=== PATIENT | male | born 1955 | race Caucasian/White ===

== ENCOUNTER 2017-10-29 04:54 | Inpatient (IN) ==
[2017-10-26 16:20] LABS: Appearance,Urine HAZY; Bacteria,Urine FEW /hpf (0); Bilirubin,Urine NEG (NEG); Color,Urine YELLOW; Glucose,Urine (UA) NEGATIVE (NEG); Leukocyte Esterase,Urine 500 /uL (NEG); Mucus,Urine MANY /hpf (0); Protein,Urine 30 mg/dL (NEG); Specific Gravity,Urine 1.026 (1.000-1.035); Urine Blood 0.03 mg/dL (<0.03); Urine Hyaline Cast 2 /lpf (0-2); Urine RBC 14 /hpf (0-1); Urine Squamous Epithelial Cell 0 /hpf (0-4); Urine WBC > 182 /hpf (0-4); Urobilinogen,Urine NEG (NEG)
[2017-10-26 17:47] LABS: Blood Urea Nitrogen 13 mg/dl (8-23)
[2017-10-26 17:51] LABS: Basophils # (Auto) 0 K/mcL (0.0-0.3); Basophils % (Auto) 0.2 % (0.0-2.0); Eosinophils # (Auto) 0.2 K/mcL (0.0-0.7); Eosinophils % (Auto) 0.9 % (0.0-7.0); Granulocytes % (Auto) 66.2 % (38.0-78.0); Lymphocytes # (Auto) 4.5 K/mcL (1.5-4.8); Lymphocytes % (Auto) 26.1 % (15.5-49.0); Mean Cell Volume 109.7 fL (80.0-100.0); Mean Corpuscular HGB Conc 33.6 g/dL (31.0-36.0); Mean Corpuscular Hemoglobin 36.9 pg (26.0-34.0); Monocytes # (Auto) 1.1 K/mcL (0.1-0.9); Monocytes % (Auto) 6.6 % (1.0-12.0); Platelet Count 208 K/mcL (140-440); RBC 4.21 M/mcL (4.50-5.90); Red Cell Distribution Width 14.1 % (11.5-14.5)
[~2017-10-29 04:54] MED LIST: IPRATROPIUM/ALBUTEROL 3 ML AMPUL.NEB NEB PRN; SCOPOLAMINE 1 PATCH PATCH TOPICAL PRN
[2017-10-29] MEDS ORDERED: GABAPENTIN 300 MG CAPSULE PO SCH (06:00)
[2017-10-29 06:14] LABS: Appearance,Urine CLEAR; Bilirubin,Urine NEG (NEG); Color,Urine YELLOW; Glucose,Urine (UA) NEGATIVE (NEG); Leukocyte Esterase,Urine NEG /uL (NEG); Protein,Urine NEG (NEG); Urine Blood NEG mg/dL (<0.03); Urobilinogen,Urine NEG (NEG)
[2017-10-29] MEDS ORDERED: CELECOXIB 200 MG CAPSULE PO SCH (07:00)
[2017-10-29] MEDS ORDERED: ceFAZolin 1 GM VIAL IV SCH (07:00)
[2017-10-29] MEDS ORDERED: ACETAMINOPHEN 500 MG TABLET PO SCH (07:00)
[2017-10-29] MEDS ORDERED: oxyCODONE 10 MG TAB.ER.12H PO SCH (07:00)
[2017-10-29] MEDS ORDERED: KETOROLAC 30 MG, ROPIVACAINE HCL/PF 49.5 ML, EPINEPHrine 0.5 MG, 0.9 % SODIUM CHLORIDE ... IJ ONE (07:08)
[2017-10-29] MEDS ORDERED: TEMAZEPAM 15 MG CAPSULE PO PRN (07:22)
[2017-10-29] MEDS ORDERED: ACETAMINOPHEN 325 MG TABLET PO PRN (07:22)
[2017-10-29] MEDS ORDERED: POLYETHYLENE GLYCOL 3350 17 GM PACKET PO PRN (07:22)
[2017-10-29] MEDS ORDERED: ONDANSETRON 4 MG/2 ML VIAL IV PRN ×2 (07:22→08:32)
[2017-10-29] MEDS ORDERED: FLEETS ADULT ENEMA PR PRN (07:22)
[2017-10-29] MEDS ORDERED: TRANEXAMIC ACID 1,000 MG/10 ML VIAL IV ONE ×2 (07:22→07:35)
[2017-10-29] MEDS ORDERED: BENZOCAINE/MENTHOL 1 LOZENGE PO PRN ×2 (07:22→08:32)
[2017-10-29] MEDS ORDERED: MAGNESIUM HYDROXIDE 30 ML ORAL.SUSP PO PRN (07:22)
[2017-10-29] MEDS ORDERED: HYDROmorphone 2 MG/ML VIAL IV PRN ×2 (07:22→08:32)
[2017-10-29] MEDS ORDERED: BISACODYL 10 MG SUPP.RECT PR PRN (07:22)
[2017-10-29] MEDS ORDERED: ALBUTEROL SULFATE 2.5 MG/3 ML NEBULIZER NEB PRN (07:25)
[2017-10-29] MEDS ORDERED: ALBUTEROL SULFATE 1 PUFF INHALER INH PRN (07:25)
[2017-10-29] MEDS ORDERED: HYDROcodone/APAP 10/325MG TABLET PO PRN (07:25)
[2017-10-29] MEDS ORDERED: LIDOCAINE HCL/PF 100 MG/5 ML SYRINGE IV ONE (07:35)
[2017-10-29] MEDS ORDERED: ONDANSETRON 4 MG/2 ML VIAL IV ONE (07:35)
[2017-10-29] MEDS ORDERED: MIDAZOLAM 5 MG/5 ML VIAL IV ONE (07:35)
[2017-10-29] MEDS ORDERED: DEXAMETHASONE 10 MG/ML VIAL IV ONE (07:35)
[2017-10-29] MEDS ORDERED: PROPOFOL 200 MG/20 ML VIAL IV ONE (07:35)
[2017-10-29] MEDS ORDERED: GENTAMICIN SULFATE 800 MG/20 ML VIAL IR ONE (07:59)
[2017-10-29] MEDS ORDERED: MEPERIDINE 25 MG/ML SYRINGE IV PRN (08:32)
[2017-10-29] MEDS ORDERED: PROMETHAZINE 25 MG/ML VIAL IV PRN (08:32)
[2017-10-29] MEDS ORDERED: IPRATROPIUM/ALBUTEROL 3 ML AMPUL.NEB NEB PRN (08:32)
[2017-10-29] MEDS ORDERED: diphenhydrAMINE 50 MG/ML VIAL IV PRN (08:32)
[2017-10-29] MEDS ORDERED: METHOCARBAMOL 1,000 MG/10 ML VIAL IV PRN (08:32)
[2017-10-29] MEDS ORDERED: LACTATED RINGERS 250 ML IV PRN (08:32)
[2017-10-29] MEDS ORDERED: NALOXONE HCL 0.4 MG/ML VIAL IV PRN (08:32)
[2017-10-29] MEDS ORDERED: fentaNYL 100 MCG/2 ML VIAL IV PRN (08:32)
[2017-10-29] MEDS ORDERED: FLUMAZENIL 0.1 MG/ML ML IV PRN (08:32)
[2017-10-29] MEDS ORDERED: LACTATED RINGERS 1,000 ML IV SCH (08:45)
[2017-10-29] MEDS ORDERED: clonazePAM 1 MG TABLET PO PRN (09:00)
--- NOTE | 2017-10-29 09:14 | Brief Operative Note ---
Date of procedure: 10/29/17 Pre-op diagnosis: left totalhip femoral stem loosening Post-op diagnosis: same Procedure: left femoral stem revision Grafts/Implants: Yes Anesthesia: GETA Complications: none Complications Description: 10/29/17 09:13 none Surgeon: Gwyn Darden Machine Ironer: Mark Leyva Estimated blood loss (cc): 50 Tourniquet Time (Minutes): 0 Specimens Removed/Pathology: none sent Condition: stable Disposition: PACU
--- NOTE | 2017-10-29 09:45 | Operative Note ---
DATE OF OPERATION: 10/29/2017 PREOPERATIVE DIAGNOSIS: Left hip femoral stem pain. POSTOPERATIVE DIAGNOSIS: Left hip femoral stem pain. PROCEDURE: Left femoral stem removal and placement of a long stem Church Modular stem. SURGEON: Gwyn Darden M.D. COMPUTER SYSTEMS SECURITY ADMINISTRATOR: Mark Leyva PA-C. ANESTHESIA: General LMA anesthesia. COMPLICATIONS: None. PATHOLOGY: We did send for soft tissue at the tip of the stem which was removed. This did show 50 white cells. There was no purulence seen. This tissue was removed. We irrigated thoroughly. DESCRIPTION OF PROCEDURE: The patient was brought to the operating room and put to sleep with general LMA anesthesia. Once asleep, the patient had the left hip sterilely prepped and draped in the usual sterile fashion. Timeout performed. Preop antibiotics given, and tranexamic acid was given. We made a superior posterior approach through the prior scar. We dissected down through the fascial layer, identified the hip. No purulence. We then released the capsule posteriorly and dislocated the hip. We then removed the femoral head and used an osteotome to remove the stem. It was not frankly loose, but we were able to remove the stem with multiple attempts with osteotomes to loosen the stem and remove any ingrowth. No purulence was seen. We impacted the stem and then slapped the stem with traction. This seemed to remove the stem with very minimal bone loss. We irrigated thoroughly and then found some tissue at the very tip that was removed. This did show 50 white cells. With this, we thoroughly irrigated this though there was no purulence in this area. We did proceed with implantation. We took a Church Modular. This was reamed up to the size 15. The Church Modular stem was impacted. We then trialed the +10 proximal body with a neutral neck length. This showed no offset, and the leg was lengthened by about 6 to 7 mm. For this reason, we then placed a neutral body and placed a 12 mm proximal body. This was still longer by 5 mm. We then impacted the stem slightly and used a neutral proximal body and used a 12 neck. This was very stable. We repaired the capsule posteriorly with #2 Ethibond, closed the fascial layer with #1 Stratafix. We injected the soft tissue with the post-inject formula. The patient tolerated this well. There was no complication. RBH:rut Heck: 10/29/2017 09:26:47 Job ID: [id number] Doc ID: [id number] Gwyn Darden MD
--- NOTE | 2017-10-29 10:05 | XRay Report ---
CLINICAL INFORMATION: Postsurgical follow-up TECHNIQUE: AP pelvis. AP and lateral left hip COMPARISON: Previous examination dated October 29, 2017 FINDINGS: Interval revision of left total hip arthroplasty. A longer femoral stem was placed. Alignment is anatomic. Pelvis is negative. No fracture. No lytic lesion. Sacrum is negative. IMPRESSION: 1. Interval revision of left total hip arthroplasty 2. Anatomic alignment Interpreted and Authenticated by: Dayron Hernandez 10/29/17
[2017-10-29] MEDS: HYDROcodone/APAP 10/325MG TABLET PO PRN ×3 (11:44→23:47)
[2017-10-29] MEDS: 0.45 % SODIUM CHLORIDE 1,000 ML IV SCH ×2 (13:58→21:17)
[2017-10-29] MEDS: GABAPENTIN 300 MG CAPSULE PO SCH ×2 (15:59→21:17)
[2017-10-29] MEDS: KETOROLAC 15 MG/ML VIAL IV PRN (15:59)
[2017-10-29] MEDS: 0.9 % SODIUM CHLORIDE 10 ML SYRINGE IV SCH ×2 (16:02→22:07)
[2017-10-29] MEDS ORDERED: MAG HYDROX/AL HYDROX/SIMETH 30 ML ORAL.SUSP PO PRN (16:05)
[2017-10-29] MEDS ORDERED: OMEPRAZOLE 20 MG CAPSULE PO STA (16:08)
[2017-10-29] MEDS: ceFAZolin 1 GM VIAL IV SCH ×2 (16:48→23:38)
[2017-10-29] MEDS ORDERED: SENNOSIDES 1 TABLET PO SCH (21:00)
[2017-10-29] MEDS ORDERED: TERAZOSIN 5 MG CAPSULE PO SCH (21:00)
[2017-10-29] MEDS: DOCUSATE SODIUM 100 MG CAPSULE PO SCH (21:16)
[2017-10-29] MEDS: SULFAMETHOXAZOLE/TRIMETHOPRIM 1 TABLET PO SCH (21:16)
[2017-10-29] MEDS: ASPIRIN 325 MG ENTERIC COATED TABLET PO SCH (21:17)
[2017-10-30] MEDS: 0.45 % SODIUM CHLORIDE 1,000 ML IV SCH ×3 (00:45→14:24)
[2017-10-30] MEDS: 0.9 % SODIUM CHLORIDE 10 ML SYRINGE IV SCH ×2 (06:10→15:00)
[2017-10-30] MEDS: HYDROcodone/APAP 10/325MG TABLET PO PRN ×2 (06:10→11:26)
[2017-10-30] MEDS ORDERED: OMEPRAZOLE 20 MG CAPSULE PO SCH (07:30)
--- NOTE | 2017-10-30 07:40 | Orthopedic Progress Note ---
Subjective Patient information: Note initiated : 10/30/17 at 7:39 am Service Date, if different from initiated Date: [] Patient: Pb Riley 62 y/o M admitted on 10/29/17 for Left Total Hip Arthroplasty Revision. Chief Complaint: [Pt is stable this morning on post operative day 1 without any significant concerns or complaints. Patients vital signs have remained stable. Patients dressing is dry and is grossly instact from a neurovascular and motor standpoint. Patients 10 point ROS is otherwise negative. ] Objective Vital signs: Vital Signs Temp Pulse Pulse Resp BP Pulse Ox 10/30/17 07:00 97.7 F 62 12 104/66 96 10/30/17 04:48 97.5 F 68 12 117/72 95 10/30/17 04:47 95 10/30/17 02:35 95 10/30/17 01:00 95 10/30/17 00:00 97.6 F 73 12 101/66 95 10/29/17 23:00 95 10/29/17 21:12 95 10/29/17 21:11 95 10/29/17 20:00 97.3 F 79 12 103/65 95 10/29/17 19:00 95 10/29/17 17:00 96 10/29/17 16:00 98.6 F 85 16 107/64 96 10/29/17 15:00 96 10/29/17 13:22 99 10/29/17 13:04 130/72 94 10/29/17 12:04 114/79 99 10/29/17 11:22 85 10/29/17 11:04 121/77 97 10/29/17 10:49 122/79 98 10/29/17 10:35 122/79 98 10/29/17 10:20 118/70 97 10/29/17 10:05 123/69 94 10/29/17 09:55 96.9 F L 85 12 131/73 99 10/29/17 09:45 85 12 121/68 99 10/29/17 09:40 88 12 104/54 98 10/29/17 09:35 93 H 14 95/57 99 10/29/17 09:30 92 H 13 126/101 99 10/29/17 09:25 87 12 120/68 99 10/29/17 09:23 97.2 F 88 88 12 125/69 99 Intake and Output 10/29/17 10/30/17 10/30/17 21:59 05:59 13:59 Intake Total 800 / 800 1400 / 1400 553 / 553 Output Total 725 / 725 475 / 475 650 / 650 Balance 75 / 75 925 / 925 -97 / -97 Intake: IV 1000 / 1000 553 / 553 Sodium Chloride 0.45% 1,000 ml 1000 / 1000 553 / 553 @ 100 mls/hr IV .Q10H [facility] Rx#: [id number] Oral 800 / 800 400 / 400 Output: Void Amount 725 / 725 475 / 475 650 / 650 Other: Meal Dinner Percent of Meal Consumed 100% Stool Size Small Small Stool Color Brown Brown Stool Consistency Formed Loose # Voids 1 1 2 # Bowel Movements 1 1 Weight 180 lb 8 oz Intake & Output: Intake & Output 10/29/17 10/30/17 10/30/17 21:59 05:59 13:59 Intake Total 800 / 800 1400 / 1400 553 / 553 Output Total 725 / 725 475 / 475 650 / 650 Balance 75 / 75 925 / 925 -97 / -97 Weight 180 lb 8 oz Intake: IV 1000 / 1000 553 / 553 Sodium Chloride 0.45% 1,000 ml 1000 / 1000 553 / 553 @ 100 mls/hr IV .Q10H [facility] Rx#: [id number] Oral 800 / 800 400 / 400 Output: Void Amount 725 / 725 475 / 475 650 / 650 Other: Meal Dinner Percent of Meal Consumed 100% Stool Size Small Small Stool Color Brown Brown Stool Consistency Formed Loose # Voids 1 1 2 # Bowel Movements 1 1 Incision: Yes healing Incision clean and dry: Yes Dressing: Yes clean Weight bearing status: full Neurological exam IM: Yes motor sensory intact, Yes neurovascular intact Extremities exam IM: Yes Foot pink and warm, Yes neurovascular intact - Labs CBC & BMP: 10/30/17 04:05 10/26/17 14:51 Labs: Orthopedic Labs 10/26/17 14:51 PT 22.3 H INR 1.9 H APTT 34 10/30/17 10/26/17 04:05 14:51 Hgb 15.6 Hct 40.1 L 46.2 Assessment and Plan (1) History of revision of total replacement of left hip joint The patient has been educated regarding dressing care, Physical Therapy recommendations, home exercises, restrictions, and follow up appointments. The patient has had all necessary DME prescribed. The patient has remained relatively stable during their hospital course. Status: Acute
--- NOTE | 2017-10-30 07:42 | Discharge Summary ---
Ortho Discharge - PAM - Patient Instructions Diet: Regular Diet Activity: activity as tolerated, weight bearing as tolerated Total Hip Protocol: Follow activity instructions as provided by Physical Therapy. Dressing Care: May shower in 2 days - Problem Maintenance (1) History of revision of total replacement of left hip joint Status: Acute - Follow Up Plan Follow Up Appointments: Mark Leyva PA-C [Physician Media Planner / Buyer] - 11/13/17 1:40 pm Disposition: Home, Self-Care Prognosis: Good Rehab Potential: Good I certify that the patient requires SNF services: No Overall status at discharge: patient is progressing back to baseline - Orders For Discharge Prescriptions: Aspirin [Ecotrin] 325 mg PO BID #60 tab.ec Docusate Sodium [Colace] 100 mg PO BID #60 cap HYDROcodone/APAP 10/325MG [[place] 10-325Mg] 1 - 2 tab PO Q4HP PRN #75 tab PRN Reason: Pain Level 3-6
[2017-10-30] MEDS ORDERED: FINASTERIDE 5 MG TABLET PO SCH (09:00)
[2017-10-30] MEDS ORDERED: ESCITALOPRAM 20 MG TABLET PO SCH (09:00)
--- NOTE | 2017-10-30 10:01 | XRay Report ---
CLINICAL INFORMATION: Revision of left total hip arthroplasty TECHNIQUE: AP images of the pelvis. COMPARISON: Preoperative evaluation dated 06/28/2016 FINDINGS: Status post revision of left total hip arthroplasty. Anatomic alignment demonstrated. IMPRESSION: Status post revision of left total hip arthroplasty Interpreted and Authenticated by: Dayron Hernandez 10/30/17
[2017-10-30] MEDS: GABAPENTIN 300 MG CAPSULE PO SCH (10:24)
[2017-10-30] MEDS: DOCUSATE SODIUM 100 MG CAPSULE PO SCH (10:25)
[2017-10-30] MEDS: SULFAMETHOXAZOLE/TRIMETHOPRIM 1 TABLET PO SCH (10:25)
[2017-10-30] MEDS: ASPIRIN 325 MG ENTERIC COATED TABLET PO SCH (10:26)
[2017-10-30] MEDS: KETOROLAC 15 MG/ML VIAL IV PRN (10:26)
--- NOTE | 2017-10-30 16:25 | Surgical Pathology Report ---
HISTOLOGY SPECIMEN MICROSCOPIC DIAGNOSIS SOFT TISSUE, LEFT HIP, BIOPSY: -- FIBROUS SOFT TISSUE WITH PATCHY FOCI OF INCREASED NEUTROPHILS (GREATER THAN 50/hpf); SEE COMMENT. -- DETACHED FRAGMENTS OF MARROW ELEMENTS WITH ONGOING TRILINEAGE HEMATOPOIESIS. (DMT:shon) COMMENT: Scattered foci of neutrophils are seen embedded within the fibrous soft tissue and are in close association with numerous lymphocytes and plasma cells. Immediately adjacent to a few of these areas are hematopoietic elements with maturing myeloid elements and scattered mature neutrophils. The arrangement of these cells to one another suggest that the neutrophils seen may be resident marrow neutrophils unassociated with an infectious or inflammatory process. Clinical correlation is necessary. INTRAOPERATIVE CONSULTATION FROZEN SECTION DIAGNOSIS ([facility], [place], [place]) FSA, SOFT TISSUE, LEFT HIP, BIOPSY: -- FOCI OF GREATER THAN 50 NEUTROPHILS/hpf. (DMT:sln) GROSS DESCRIPTION Received fresh for intraoperative consultation labeled left hip, is a 2.1 x 1.5 x 0.4 cm hanna-pink membranous soft tissue fragment. The fragment is sectioned and entirely submitted for frozen section consultation and resubmitted as FSA. (DMT:sln) Electronically Signed by: Matias Byers M.D.
== END 2017-10-30 15:10 | disposition home or self-care (01) | DRG 468 ==
LOC: MEDSUR 04:54
PROVIDERS: ADMIT Orthopaedic Surgery; ATTEND Orthopaedic Surgery

== ENCOUNTER 2019-12-22 09:29 | Inpatient (IN) ==
[2019-12-15 17:34] LABS: Basophils # (Auto) 0.13 K/mcL (0.00-0.30); Basophils % (Auto) 1.2 % (0.0-2.0); Eosinophils # (Auto) 0.86 K/mcL (0.00-0.70); Eosinophils % (Auto) 7.8 % (0.0-7.0); Granulocytes % (Auto) 47.6 % (38.0-78.0); Hematocrit 39.5 % (40.1-51.0); Hemoglobin 13.6 g/dL (13.7-17.5); Lymphocytes # (Auto) 3.76 K/mcL (1.50-4.80); Mean Cell Volume 107.3 fL (80.0-100.0); Mean Corpuscular HGB Conc 34.4 g/dL (31.0-36.0); Mean Platelet Volume 9.9 fL (7.4-10.4); Monocytes # (Auto) 1.04 K/mcL (0.10-0.90); Monocytes % (Auto) 9.4 % (1.0-12.0); Platelet Count 251 K/mcL (140-440); RBC 3.68 M/mcL (4.63-6.08); WBC 11.1 K/mcL (4.50-11.00)
[2019-12-15 17:51] LABS: Blood Urea Nitrogen 4 mg/dl (8-23); Calcium 8.9 mg/dl (8.6-10.4); Carbon Dioxide 27 mmol/L (22-30); Chloride 104 mmol/L (96-108); Glomerular Filtration Rate 95; Glucose 95 mg/dL (70-105)
[2019-12-15 18:07] LABS: Prothrombin Time 13.2 sec (11.9-14.5)
[2019-12-16 13:15] LABS: Appearance,Urine CLEAR; Bacteria,Urine 0 /hpf (0); Bilirubin,Urine NEG (NEG); Color,Urine YELLOW; Culture Indicated,Urine YES; Glucose,Urine (UA) NEGATIVE (NEG); Ketones,Urine NEG (NEG); Leukocyte Esterase,Urine 250 /uL (NEG); Mucus,Urine FEW /hpf (0); Nitrate,Urine NEG (NEG); Protein,Urine NEG (NEG); Specific Gravity,Urine 1.014 (1.000-1.035); Urine Blood NEG mg/dL (<0.03); Urine Hyaline Cast 2 /lpf (0-2); Urine RBC 4 /hpf (0-1); Urine Squamous Epithelial Cell 0 /hpf (0-4); Urine WBC 23 /hpf (0-4); Urobilinogen,Urine NEG (NEG)
[~2019-12-22 09:29] MED LIST changes: +ACETAMINOPHEN 500 MG TABLET PO SCH; +CELECOXIB 200 MG CAPSULE PO SCH; +GABAPENTIN 400 MG CAPSULE PO SCH; +ceFAZolin 2 GM in DEXTROSE 5% IN WATER 50 ML IV SCH; +oxyCODONE 10 MG TAB.ER.12H PO SCH
[2019-12-22 12:05] LABS: Appearance,Urine CLEAR; Bacteria,Urine 0 /hpf (0); Bilirubin,Urine NEG (NEG); Color,Urine YELLOW; Culture Indicated,Urine NO; Glucose,Urine (UA) NEGATIVE (NEG); Ketones,Urine NEG (NEG); Leukocyte Esterase,Urine 25 /uL (NEG); Mucus,Urine FEW /hpf (0); Nitrate,Urine NEG (NEG); Protein,Urine NEG (NEG); Specific Gravity,Urine 1.008 (1.000-1.035); Urine Blood NEG mg/dL (<0.03); Urine RBC 1 /hpf (0-1); Urine Squamous Epithelial Cell 0 /hpf (0-4); Urine WBC 1 /hpf (0-4); Urobilinogen,Urine NEG (NEG)
[2019-12-22] MEDS ORDERED: ROPIVACAINE HCL/PF 30 ML VIAL IJ ONE (13:05)
[2019-12-22] MEDS ORDERED: HYDROmorphone 1 MG/ML SYRINGE IV ONE (13:05)
[2019-12-22] MEDS ORDERED: PROPOFOL 200 MG/20 ML VIAL IV ONE (13:05)
[2019-12-22] MEDS ORDERED: fentaNYL 250 MCG/5 ML VIAL IV ONE (13:05)
[2019-12-22] MEDS ORDERED: DEXAMETHASONE 10 MG/ML VIAL IV ONE (13:05)
[2019-12-22] MEDS ORDERED: KETAMINE 100 MG/ML ML IV ONE (13:05)
[2019-12-22] MEDS ORDERED: MIDAZOLAM 2 MG/2 ML VIAL IV ONE (13:05)
[2019-12-22] MEDS ORDERED: GLYCOPYRROLATE 0.2 MG/ML VIAL IV ONE (13:05)
[2019-12-22] MEDS ORDERED: LIDOCAINE HCL/PF 100 MG/5 ML SYRINGE IV ONE (13:05)
[2019-12-22] MEDS ORDERED: TRANEXAMIC ACID 1,000 MG/10 ML VIAL IV ONE (13:05)
[2019-12-22] MEDS ORDERED: IPRATROPIUM/ALBUTEROL 3 ML AMPUL.NEB NEB PRN (14:06)
[2019-12-22] MEDS ORDERED: ONDANSETRON 4 MG/2 ML VIAL IV PRN ×2 (14:06→14:36)
[2019-12-22] MEDS ORDERED: NALOXONE HCL 0.4 MG/ML VIAL IV PRN (14:06)
[2019-12-22] MEDS ORDERED: METHOCARBAMOL 1,000 MG/10 ML VIAL IV PRN (14:06)
[2019-12-22] MEDS ORDERED: ePHEDrine 50 MG/ML AMPUL IV PRN (14:06)
[2019-12-22] MEDS ORDERED: diphenhydrAMINE 50 MG/ML VIAL IV PRN (14:06)
[2019-12-22] MEDS ORDERED: MEPERIDINE 25 MG/ML SYRINGE IV PRN (14:06)
[2019-12-22] MEDS ORDERED: PROMETHAZINE 25 MG/ML VIAL IV PRN (14:06)
[2019-12-22] MEDS ORDERED: fentaNYL 100 MCG/2 ML VIAL IV PRN (14:06)
[2019-12-22] MEDS ORDERED: FLUMAZENIL 0.1 MG/ML ML IV PRN (14:06)
[2019-12-22] MEDS ORDERED: ATROPINE SULFATE 0.4 MG/ML VIAL IV PRN (14:06)
[2019-12-22] MEDS ORDERED: METOPROLOL TARTRATE 5 MG/5 ML VIAL IV PRN (14:06)
[2019-12-22] MEDS ORDERED: LACTATED RINGERS 1,000 ML IV SCH (14:15)
[2019-12-22] MEDS ORDERED: GENTAMICIN SULFATE 800 MG/20 ML VIAL IR ONE (14:32)
[2019-12-22] MEDS ORDERED: oxyCODONE/APAP 5/325MG TABLET PO PRN (14:34)
[2019-12-22] MEDS ORDERED: FLEETS ADULT ENEMA PR PRN (14:36)
[2019-12-22] MEDS ORDERED: TEMAZEPAM 15 MG CAPSULE PO PRN (14:36)
[2019-12-22] MEDS ORDERED: BISACODYL 10 MG SUPP.RECT PR PRN (14:36)
[2019-12-22] MEDS ORDERED: HYDROcodone/APAP 10/325MG TABLET PO PRN (14:36)
[2019-12-22] MEDS ORDERED: MAGNESIUM HYDROXIDE 30 ML ORAL.SUSP PO PRN (14:36)
[2019-12-22] MEDS ORDERED: TRANEXAMIC ACID 1,000 MG/10 ML VIAL IV SCH (14:36)
[2019-12-22] MEDS ORDERED: ACETAMINOPHEN 325 MG TABLET PO PRN (14:36)
[2019-12-22] MEDS ORDERED: BENZOCAINE/MENTHOL 1 LOZENGE PO PRN (14:36)
[2019-12-22] MEDS ORDERED: POLYETHYLENE GLYCOL 3350 17 GM PACKET PO PRN (14:36)
--- NOTE | 2019-12-22 14:42 | Brief Operative Note ---
Brief Operative Note Date of procedure: 12/22/19 Pre-op diagnosis: right shoulder djd with rca and torn bicep tendon Post-op diagnosis: same Procedure: right tsa with bicep tenodesis Grafts/Implants: Yes Anesthesia: GETA Complications: none Surgeon: Gwyn Darden Croze Machine Operator: Mark Leyva Estimated blood loss (cc): 50.00 Specimens Removed/Pathology: none sent Condition: stable Disposition: PACU
[2019-12-22] MEDS ORDERED: ceFAZolin 1 GM VIAL IV SCH (14:45)
--- NOTE | 2019-12-22 16:06 | XRay Report ---
INDICATION: Post-OP Total Shoulder TECHNIQUE: AP and Y views of the right shoulder COMPARISON: None. FINDINGS: Status post right reverse shoulder arthroplasty. Alignment is anatomic. IMPRESSION: Reverse right shoulder arthroplasty Interpreted and Authenticated by: Dayron Hernandez 12/22/19
[2019-12-22] MEDS: LACTATED RINGERS 1,000 ML IV SCH (16:30)
[2019-12-22] MEDS: KETOROLAC 15 MG/ML VIAL IV PRN (17:45)
[2019-12-22] MEDS: oxyCODONE/APAP 5/325MG TABLET PO PRN ×2 (17:45→22:53)
[2019-12-22] MEDS: ceFAZolin 1 GM VIAL IV SCH (20:46)
[2019-12-22] MEDS: DOCUSATE SODIUM 100 MG CAPSULE PO SCH (20:46)
[2019-12-22] MEDS: HYDROmorphone 1 MG/ML SYRINGE IV PRN (20:46)
[2019-12-22] MEDS: 0.9 % SODIUM CHLORIDE 10 ML SYRINGE IV SCH (20:47)
[2019-12-22] MEDS ORDERED: SENNOSIDES 1 TABLET PO SCH (21:00)
[2019-12-23] MEDS: HYDROmorphone 1 MG/ML SYRINGE IV PRN (01:18)
[2019-12-23] MEDS: KETOROLAC 15 MG/ML VIAL IV PRN ×2 (01:18→07:24)
[2019-12-23] MEDS: LACTATED RINGERS 1,000 ML IV SCH (01:22)
[2019-12-23] MEDS: oxyCODONE/APAP 5/325MG TABLET PO PRN ×2 (03:11→07:24)
[2019-12-23] MEDS: ceFAZolin 1 GM VIAL IV SCH (04:56)
[2019-12-23] MEDS: 0.9 % SODIUM CHLORIDE 10 ML SYRINGE IV SCH (05:14)
--- NOTE | 2019-12-23 07:24 | Discharge Plan ---
Discharge Instructions - [facility] Patient Instructions Total Shoulder Protocol: Leave immobilizer in place except for bathing and ROM. Abduction pillow. Continue to wear sling until seen by physician. Codman Pendulum : These exercises use momentum produced by your body to move your shoulder joint. Bend your knees and shift your weight to your front leg, then back, allowing your arm to swing in the same directions. Using the same technique, alternately shift your weight between your right and left legs, allowing your arm to swing from side to side. These exercises are also performed in counterclockwise and clockwise circular motions. Typically these exercises are performed several times per day, for a set number repetitions or minutes, such as 20 times in a row or 5 minutes at a time. Discharge Plan Patient/Caregiver Discharge Instructions Activity: as per physical therapy Diet: Regular Diet Prescriptions: New oxycodone-acetaminophen 5-325 mg Tablet 1 tab PO Q4HP PRN (Reason: Pain Level 3-6) Qty: 75 RF: 0 docusate sodium 100 mg Capsule 100 mg PO BID Qty: 60 RF: 0 No Action Eliquis 2.5 mg tablet 2.5 mg PO BID RF: 0 albuterol sulfate 1 PUFF inhaler 1 puff INH Q4HP PRN (Reason: Shortness Of Breath) RF: 0 trazodone 50 MG tablet 50 - 150 mg PO HS RF: 0 omeprazole 20 MG capsule 40 mg PO DAILY RF: 0 gabapentin 400 mg Capsule 400 mg PO QID RF: 0 clonazepam 1 mg Tablet 1 mg PO QHS RF: 0 hydrocodone-acetaminophen [Agra] 10-325 mg Tablet 1 tab PO Q6H PRN (Reason: Pain) RF: 0 tamsulosin 0.4 mg Capsule 0.4 mg PO BID RF: 0 Follow Up Plan Patient Disposition: Home, Self-Care Rehab Potential: Good I certify that the patient requires SNF services: No Overall status at discharge: patient is progressing back to baseline Discharge Orders: Discharge Order (Routine); Ordered 12/23/19 Ordered By: Mark Leyva
[2019-12-23] MEDS: DOCUSATE SODIUM 100 MG CAPSULE PO SCH (07:35)
--- NOTE | 2019-12-23 09:33 | Operative Note ---
DATE OF OPERATION: 12/22/2019 PREOPERATIVE DIAGNOSES: Right shoulder rotator cuff arthropathy with severe arthritis and biceps tendinopathy. POSTOPERATIVE DIAGNOSES: Right shoulder rotator cuff arthropathy with severe arthritis and biceps tendinopathy. PROCEDURE: Right reverse total shoulder and biceps tenodesis. SURGEON: Gwyn Darden M.D. ULTRA SOUND TECHNICIAN: Mark Leyva PA-C. The PA's assistance was required for the safe and efficient completion of the entire case. This provider's expertise and technical skill were required throughout the case. The PA assisted with preoperative coordination, intraoperative retraction, wound closure, dressing and splint application, as well as postoperative documentation and care coordination. ANESTHESIA: General LMA anesthesia. COMPLICATIONS: None. ESTIMATED BLOOD LOSS: 55 mL. No blood products given. DESCRIPTION OF PROCEDURE: The patient was brought to the operating room and put to sleep with general LMA anesthesia. A timeout was performed confirming the right shoulder as the operative site. Once Ioban had been placed over the skin, we made a deltopectoral approach to the shoulder and released the biceps tendon. We released the subscap anteriorly. We subluxed the humeral head anteriorly and made our neck cut at the surgical neck region using the alignment guide at 135 degrees of inclination and 20 degrees of retroversion. We then placed a protective plate on the bony surface and subluxed this posteriorly. We performed a 360 degree capsular release and removed the labrum. We removed the remnants of the biceps tendon as well and placed a central pin. This was reamed up to the size 40 and then placing a metaglene with a central screw measuring 36 mm, peripheral screws measured 36, 32, and 32 with excellent purchase. A 40 mm glenosphere was placed with 2 mm of offset. Once done, we then prepared the humeral side. We broached up to the size 11. This had to be cut slightly lower because it was too tight. Once perfectly tensioned, we then placed a size [address] with a standard poly for a 40 mm head. Once done, we then reduced the shoulder and took it through range of motion. It was very stable throughout the arc of motion. We irrigated thoroughly, released the remnants of the biceps tendon and repaired the biceps tendon to the pectoralis major. This was repaired to the pec major. The biceps was sutured to the pec major after roughening of the bony surface, and the patient tolerated this well. We irrigated thoroughly and closed the deltopectoral interval with 2-0 Vicryl and closed the skin with 2-0 Vicryl and 3-0 Monocryl and adhesive closure. Sterile bandage was applied. A DonJoy sling was fitted and given to the patient. Implants were size 11 stem with a standard thickness poly for a 40 mm head. The metaglene with the above-mentioned screws, as well as a 40 mm glenosphere with 2 mm of offset. RBEliz:rut Job ID: [id number] Doc ID: [id number] Gwyn Darden MD
== END 2019-12-23 09:00 | disposition home or self-care (01) | DRG 483 ==
LOC: SUR 09:29 → MEDSUR 09:30 → EDSTATUS 14:00 → UNDODISIN 12-23 09:00 → MEDSUR 12-24 10:11
PROVIDERS: ADMIT Orthopaedic Surgery; ATTEND Orthopaedic Surgery